=== PATIENT | female | born 2000 | race Caucasian/White ===

== ENCOUNTER 2018-05-16 09:08 | Inpatient (IN) | payer OTHER ==
[~2018-05-16] VITALS: Ht 162.6 cm; Wt 64.0 kg
[2018-05-16] MEDS ORDERED: VIT1LOZE2 PO (09:46)
[2018-05-16] MEDS ORDERED: IBUP-1484 PO (09:47)
[2018-05-16] MEDS ORDERED: ASCO1TAB2 PO (09:47)
[2018-05-16] MEDS ORDERED: SODIUM CHLORIDE 0.9% 1,000ML IVBOLUS ONE ×2 (10:00→13:00)
[2018-05-16] MEDS ORDERED: ACETAMINOPHEN 500 MG TABLET PO ONE (10:00)
[2018-05-16] MEDS ORDERED: MORPHINE SULFATE 4 MG/ML, 1ML IVPush PRN (10:00)
[2018-05-16] MEDS ORDERED: ACETAMINOPHEN 500 MG TABLET ONE (10:04)
[2018-05-16] MEDS ORDERED: MORPHINE SULFATE 4 MG/ML, 1ML ONE (10:04)
--- NOTE | 2018-05-16 10:07 | NUR ---
[facility] HAND-OFF REPORT GIVEN TO JACOBO GROSSMAN.
--- NOTE | 2018-05-16 10:08 | NUR ---
REPORT FROM JACOBO SUE. ASSUMED CARE OF PATIENT AT THIS TIME, LABS DRAWN, XRAY AT BEDSIDE. PATIENT SITTING ON FROY MARIANO. [id number].
--- NOTE | 2018-05-16 10:18 | NUR ---
PATIENT TO US AT THIS TIME VIA FROY MARIANO.
--- NOTE | 2018-05-16 10:18 | NUR ---
LAB UNABLE TO DRAW BOTH SETS OF BLOOD CULTURES, 2ND ATTEMPT WHEN PATIENT IS BACK FROM US.
[2018-05-16 10:40] LABS: MEAN CORPUSCULAR HEMOGLOBIN 27.4 pg (27.0-34.8); MEAN CORPUSCULAR HGB CONC 32.8 g/dL (32.4-35.8); MEAN CORPUSCULAR VOLUME 83.5 fL (80-100); MEAN PLATELET VOLUME 7.7 fL (7.4-10.4); PLATELET COUNT 354 x10^3/uL (130-400); RED BLOOD COUNT 4.89 x10^6/uL (3.82-5.3); RED CELL DISTRIBUTION WIDTH 15.1 % (9.6-15.2)
[2018-05-16 10:43] LABS: HCT (SEDRATE) 40.8 % (34.6-47.8)
[2018-05-16 10:49] LABS: INTERNATIONAL NORMALIZED RATIO 1.14 (0.93-1.1)
[2018-05-16 10:50] LABS: ALANINE AMINOTRANSFERASE 15 U/L (12-78); ALBUMIN 3.8 g/dL (3.4-5.0); ANION GAP 7 mmol/L (5-15); CALCIUM 9.2 mg/dL (8.5-10.1); CHLORIDE 108 mmol/L (98-107); CREATININE 0.81 mg/dL (0.55-1.02)
--- NOTE | 2018-05-16 10:50 | NUR ---
MOTHER ASSISTED PATIENT TO BATHROOM, UA COLLECTED AND SENT TO LAB. PATIENT BACK TO BED, NADN. LAB AT BEDSIDE TO REDRAW FOR BLOOD CULTURES.
[2018-05-16 10:54] LABS: RAPID INFLUENZA A Negative (Negative); RAPID INFLUENZA B Negative (Negative)
[2018-05-16 10:57] LABS: ALKALINE PHOSPHATASE 92 U/L (45-117); BASOPHILS # (AUTO) 0.02 x10^3/uL (0-0.3); BASOPHILS % (AUTO) 0 % (0-1); BILIRUBIN,TOTAL 0.4 mg/dL (0.2-1.0); CREATINE KINASE, TOTAL 111 U/L (26-192); EOSINOPHILS % (AUTO) 0 % (1-7); LYMPHOCYTES # (AUTO) 1.75 x10^3/uL (1-6.1); LYMPHOCYTES % (AUTO) 8 % (22-44); MD SCAN; MONOCYTES # (AUTO) 0.79 x10^3/uL (0-1.4); MONOCYTES % (AUTO) 4 % (2-9); NEUTROPHILS # (AUTO) 18.17 x10^3/uL (1.8-8.0); NEUTROPHILS % (AUTO) 88 % (42-75); TOTAL PROTEIN 8.9 g/dL (6.4-8.2)
[2018-05-16 11:14] LABS: CULTURE INDICATED? YES
--- NOTE | 2018-05-16 11:51 | NUR ---
NEW ORDERS, PATIENT BACK FROM CT. VS UPDATED IN CHART, PATIENT/FAMILY UPDATED ON POC. NADN.
[2018-05-16] MEDS ORDERED: OMNIPAQUE 350 MG/ML, 100ML BOTTLE ONE (11:53)
--- NOTE | 2018-05-16 12:30 | NUR ---
CT RESULTS BACK, CHART UP FOR RECHECK.
[2018-05-16 12:37] LABS: MICROSCOPIC INDICATED
[2018-05-16] MEDS ORDERED: CEFTRIAXONE PMX 1GM/50ML 50 ML ONE (12:46)
--- NOTE | 2018-05-16 12:52 | NUR ---
BLOOD CULTURES DRAWN X 2 PRIOR TO ABX ADMINISTRATIONS, PATIENT TBADM. ADMIT ORDER IN, AWAITING BED ASSIGNMENT. VS UPDATED IN CHART, PATIENT/FAMILY UPDATED ON POC. NADN.
[2018-05-16] MEDS ORDERED: [UNRECOGNIZED DRUG - OTHER] HOMEMEDPO PRN (13:00)
[2018-05-16] MEDS ORDERED: ZNOX HOMEMEDPO PRN (13:00)
[2018-05-16] MEDS ORDERED: LABETALOL 5MG/ML, 20ML IVPush PRN (13:00)
[2018-05-16] MEDS ORDERED: VIT C HOMEMEDPO PRN (13:00)
[2018-05-16] MEDS ORDERED: ONDANSETRON 2MG/ML, 2ML IVPush PRN (13:00)
[2018-05-16] MEDS ORDERED: PIPERACILLIN/TAZO/PMX 3.375GM 50 ML IV ONE (13:00)
[2018-05-16] MEDS ORDERED: VANCOMYCIN PER PHARMACY MC PRN ×2 (13:00)
[2018-05-16] MEDS ORDERED: CEFTRIAXONE PMX 1GM/50ML 50 ML IV ONE (13:00)
[2018-05-16] MEDS ORDERED: POLYETHYLENE GLYCOL 17 GM PACKET PO PRN (13:00)
[2018-05-16] MEDS ORDERED: PROPOLIS HOMEMEDPO PRN (13:00)
[2018-05-16] MEDS ORDERED: ONDANSETRON ODT 4 MG PO PRN (13:00)
[2018-05-16] MEDS ORDERED: PIPERACILLIN/TAZO/PMX 3.375GM 50 ML ONE (13:23)
[2018-05-16] MEDS: PIPERACILLIN/TAZO/PMX 3.375GM 50 ML IV SCH ×2 (13:38→21:29)
--- NOTE | 2018-05-16 13:48 | NUR ---
PATIENT AMB TO BATHROOM WITH MOTHER, PATIENT BACK TO BED, IVF AND FIRST IV ABX STOPPED, SECOND IV ABX AEDMINISTERED PER MD ORDER. VS UPDATED IN CHART, PATIENT TO BE MEDICAL HOLD DUE TO NO BEDS AVAILABLE.
[2018-05-16 14:12] LABS: AMPHETAMINE SCREEN, URINE Negative (Negative); BARBITURATE SCREEN, URINE Negative (Negative); BENZODIAZEPINE SCREEN, URINE Negative (Negative); CANNABINOID SCREEN, URINE Negative (Negative); COCAINE SCREEN, URINE Negative (Negative); METHADONE SCREEN, URINE Negative (Negative); OPIATE SCREEN, URINE Positive (Negative)
[2018-05-16] MEDS ORDERED: CLINDAMYCIN PMX 900MG/50ML 50 ML ONE (14:27)
[2018-05-16] MEDS: CLINDAMYCIN PMX 900MG/50ML 50 ML IV SCH ×2 (14:28→22:48)
--- NOTE | 2018-05-16 14:31 | NUR ---
PATIENT PLACED IN HOSPITAL BED, SITTING COMFORTABLY IN HOSPITAL BED, NADN, 2ND ABX STOPPED, 3RD ABX ADMINISTERED PER MD ORDER. FAMILY AT BEDSIDE, NO ADDITIONAL NEEDS AT THIS TIME.
--- NOTE | 2018-05-16 15:32 | NUR ---
ATTEMPTED TO CALL DR BAUMANN TO REQUEST DIET ORDER. NO ANSWER AT THIS TIME.
[2018-05-16] MEDS: D5%-0.45% NACL 1,000 ML IV SCH (15:34)
--- NOTE | 2018-05-16 15:35 | NUR ---
3RD ABX STOPPED, D5W 0.45% ADMINISTERED EPR MD ORDER. FAMILY AT BEDSIDE. CALL LIGHT WITHIN REACH. PATIENT RESTING QUIETLY IN HOSPITAL BED. NO ADDITIONAL NEEDS AT THIS TIME.
--- NOTE | 2018-05-16 15:40 | NUR ---
PER MACK MICHAELS FOR PATIENT TO HAVE DIET TRAY. DIET TRAY ORDERED.
--- NOTE | 2018-05-16 15:46 | NUR ---
PATIENT PROVIDED WATER PER REQUEST, PATIENT TO MRI VIA GURNEY AT THIS TIME, FROY. IVF STOPPED WHILE AT MRI PER FIGURINE MAKER REQUEST.
[2018-05-16] MEDS ORDERED: GADOBUTROL 7.5 MMOL/7.5 ML PFS ONE (16:28)
--- NOTE | 2018-05-16 16:54 | NUR ---
PATIENT BACK FROM MRI, DIET TRAY PROVIDED. IVF RE-STARTED. NADN, NO ADDITIONAL NEEDS AT THIS TIME.
[2018-05-16] MEDS ORDERED: VANCOMYCIN 1,200 MG in SODIUM CHLORIDE 0.9% 250 ML IV ONE ×2 (17:00→18:30)
--- NOTE | 2018-05-16 17:10 | NUR ---
PATIENT TRANSFERRED/ADMITTED TO HOSPITAL BED UPSTAIRS AT THIS TIME,
--- NOTE | 2018-05-16 17:10 | NUR ---
REPORT TO JACOBO BENSON.
[2018-05-16 17:46] VITALS: BP 99/63
[2018-05-16] MEDS ORDERED: ACETAMINOPHEN 325 MG TABLET ONE (18:21)
[2018-05-16] MEDS: ACETAMINOPHEN 325 MG TABLET PO PRN ×2 (18:23→22:49)
[2018-05-16] MEDS ORDERED: PHARMACOKINETIC CONSULTATION MC ONE (18:30)
[2018-05-16] MEDS ORDERED: PHARMACOKINETIC MONITORING MC PRN (18:30)
[2018-05-16] MEDS: VANCOMYCIN 1,200 MG in SODIUM CHLORIDE 0.9% 250 ML IV SCH (19:39)
[2018-05-16] MEDS ORDERED: IBUPROFEN 200 MG TABLET PO PRN (20:00)
[2018-05-16 20:57] VITALS: BP 89/54
[2018-05-17] MEDS ORDERED: MORPHINE SULFATE 4 MG/ML, 1ML IVPush PRN
[2018-05-17 01:35] VITALS: BP 93/58
[2018-05-17] MEDS: D5%-0.45% NACL 1,000 ML IV SCH ×2 (03:12→09:40)
[2018-05-17] MEDS: PIPERACILLIN/TAZO/PMX 3.375GM 50 ML IV SCH (03:19)
[2018-05-17 05:14] LABS: MEAN CORPUSCULAR HEMOGLOBIN 27.2 pg (27.0-34.8); MEAN CORPUSCULAR HGB CONC 32.2 g/dL (32.4-35.8); MEAN CORPUSCULAR VOLUME 84.3 fL (80-100); MEAN PLATELET VOLUME 7.5 fL (7.4-10.4); PLATELET COUNT 288 x10^3/uL (130-400); RED BLOOD COUNT 4.03 x10^6/uL (3.82-5.3); RED CELL DISTRIBUTION WIDTH 15.6 % (9.6-15.2)
[2018-05-17 05:25] LABS: ALBUMIN 2.4 g/dL (3.4-5.0); ANION GAP 9 mmol/L (5-15); CALCIUM 7.7 mg/dL (8.5-10.1); CHLORIDE 112 mmol/L (98-107)
[2018-05-17 05:39] LABS: ALANINE AMINOTRANSFERASE 11 U/L (12-78); ALKALINE PHOSPHATASE 75 U/L (45-117); BILIRUBIN,TOTAL 0.5 mg/dL (0.2-1.0); CREATININE 0.59 mg/dL (0.55-1.02); TOTAL PROTEIN 6.3 g/dL (6.4-8.2)
[2018-05-17 05:44] LABS: MD YES
[2018-05-17 05:46] LABS: BAND#(MANUAL) 1.33 x10^3/uL; BANDS%(MANUAL) 6 % (0-7); LYMPH#(MANUAL) 1.33 x10^3/uL (1-6.1); LYMPHS% (MANUAL) 6 % (22-44); MONOS#(MANUAL) 1.11 x10^3/uL (0.3-2.7); MONOS% (MANUAL) 5 % (2-9); SEG#(MANUAL) 18.43 x10^3/uL (1.8-8); SEGS% (MANUAL) 83 % (42-75)
[2018-05-17 05:47] LABS: ANISOCYTOSIS 1+
[2018-05-17 05:48] LABS: <PLATELET ESTIMATE> ADEQUATE; <PLT MORPHOLOGY> NORMAL PLT MORPH; OVALOCYTES 1+
[2018-05-17] MEDS: CLINDAMYCIN PMX 900MG/50ML 50 ML IV SCH ×3 (06:24→22:44)
[2018-05-17 07:34] VITALS: BP 93/60
[2018-05-17] MEDS: ASCORBIC ACID 500 MG TABLET PO SCH (09:00)
[2018-05-17] MEDS: SENNA/DOCUSATE TABLET PO SCH (09:00)
[2018-05-17] MEDS ORDERED: POTASSIUM CHLORIDE 20 MEQ TAB.ER.PRT PO ONE ×2 (11:00→15:00)
[2018-05-17] MEDS: VANCOMYCIN 1,200 MG in SODIUM CHLORIDE 0.9% 250 ML IV SCH (12:29)
[2018-05-17 14:17] VITALS: BP 99/56
[2018-05-17] MEDS: ACETAMINOPHEN 325 MG TABLET PO PRN ×2 (14:38→20:01)
[2018-05-17] MEDS: AMPICILLIN/SULBACTAM 3 GM in SODIUM CHLORIDE 0.9% 100 ML IV SCH ×2 (15:15→21:39)
[2018-05-17] MEDS ORDERED: NAPROXEN 250 MG TABLET PO SCH ×2 (15:30→20:00)
[2018-05-17 16:43] VITALS: BP 94/60
[2018-05-17] MEDS: SODIUM CHLORIDE 0.45% 1,000 ML IV SCH (16:54)
[2018-05-17 19:43] VITALS: BP 100/65
[2018-05-17] MEDS ORDERED: POTASSIUM CHLORIDE 20 MEQ TAB.ER.PRT ONE (21:57)
[2018-05-18] MEDS: VANCOMYCIN 1,300 MG in SODIUM CHLORIDE 0.9% 250 ML IV SCH ×2 (00:06→12:20)
[2018-05-18 01:40] VITALS: BP 96/63
[2018-05-18] MEDS: ACETAMINOPHEN 325 MG TABLET PO PRN ×3 (02:18→17:04)
[2018-05-18] MEDS: SODIUM CHLORIDE 0.45% 1,000 ML IV SCH (03:02)
[2018-05-18] MEDS: AMPICILLIN/SULBACTAM 3 GM in SODIUM CHLORIDE 0.9% 100 ML IV SCH ×4 (03:02→20:45)
[2018-05-18 04:35] LABS: MEAN CORPUSCULAR HGB CONC 33.1 g/dL (32.4-35.8); MEAN CORPUSCULAR VOLUME 84.7 fL (80-100); MEAN PLATELET VOLUME 7.4 fL (7.4-10.4); PLATELET COUNT 333 x10^3/uL (130-400); RED BLOOD COUNT 3.94 x10^6/uL (3.82-5.3); RED CELL DISTRIBUTION WIDTH 15.6 % (9.6-15.2)
[2018-05-18 04:46] LABS: CHLORIDE 112 mmol/L (98-107)
[2018-05-18 04:53] LABS: ALANINE AMINOTRANSFERASE 13 U/L (12-78); ALBUMIN 2.4 g/dL (3.4-5.0); ALKALINE PHOSPHATASE 76 U/L (45-117); ANION GAP 10 mmol/L (5-15); BILIRUBIN,TOTAL 0.4 mg/dL (0.2-1.0); CREATINE KINASE, TOTAL 81 U/L (26-192); CREATININE 0.61 mg/dL (0.55-1.02); TOTAL PROTEIN 6.8 g/dL (6.4-8.2)
[2018-05-18 05:00] LABS: BASOPHILS % (AUTO) 0 % (0-1); EOSINOPHILS # (AUTO) 0.01 x10^3/uL (0-0.8); EOSINOPHILS % (AUTO) 0 % (1-7); LYMPHOCYTES # (AUTO) 2.36 x10^3/uL (1-6.1); LYMPHOCYTES % (AUTO) 9 % (22-44); MD SCAN; MONOCYTES # (AUTO) 1.07 x10^3/uL (0-1.4); MONOCYTES % (AUTO) 4 % (2-9); NEUTROPHILS # (AUTO) 21.81 x10^3/uL (1.8-8.0); NEUTROPHILS % (AUTO) 86 % (42-75)
[2018-05-18 05:02] LABS: LYMPH#(MANUAL) 2.02 x10^3/uL (1-6.1); LYMPHS% (MANUAL) 8 % (22-44); MONOS#(MANUAL) 1.01 x10^3/uL (0.3-2.7); MONOS% (MANUAL) 4 % (2-9); SEG#(MANUAL) 22.26 x10^3/uL (1.8-8); SEGS% (MANUAL) 88 % (42-75)
[2018-05-18 05:03] LABS: <PLATELET ESTIMATE> ADEQUATE; <PLT MORPHOLOGY> NORMAL PLT MORPH; ANISOCYTOSIS 1+; OVALOCYTES 1+
[2018-05-18] MEDS: CLINDAMYCIN PMX 900MG/50ML 50 ML IV SCH ×3 (06:22→22:42)
[2018-05-18 08:07] VITALS: BP 93/60
[2018-05-18] MEDS: SENNA/DOCUSATE TABLET PO SCH (09:00)
[2018-05-18] MEDS: ASCORBIC ACID 500 MG TABLET PO SCH (09:38)
[2018-05-18] MEDS: LACTATED RINGERS 1,000 ML IV SCH ×2 (09:38→22:30)
[2018-05-18 15:24] VITALS: BP 107/70
[2018-05-18 19:43] VITALS: BP 94/61
[2018-05-19] MEDS: VANCOMYCIN 1,300 MG in SODIUM CHLORIDE 0.9% 250 ML IV SCH (00:30)
[2018-05-19] MEDS: AMPICILLIN/SULBACTAM 3 GM in SODIUM CHLORIDE 0.9% 100 ML IV SCH ×4 (03:11→21:08)
[2018-05-19 03:12] VITALS: BP 84/47
[2018-05-19] MEDS: ACETAMINOPHEN 325 MG TABLET PO PRN ×2 (03:17→15:20)
[2018-05-19 05:26] LABS: MEAN CORPUSCULAR HEMOGLOBIN 27.2 pg (27.0-34.8); MEAN CORPUSCULAR HGB CONC 32.5 g/dL (32.4-35.8); MEAN CORPUSCULAR VOLUME 83.7 fL (80-100); MEAN PLATELET VOLUME 7.1 fL (7.4-10.4); PLATELET COUNT 327 x10^3/uL (130-400); RED BLOOD COUNT 3.41 x10^6/uL (3.82-5.3); RED CELL DISTRIBUTION WIDTH 15.7 % (9.6-15.2)
[2018-05-19 05:34] LABS: ALBUMIN 2.1 g/dL (3.4-5.0); ANION GAP 8 mmol/L (5-15); CHLORIDE 113 mmol/L (98-107)
[2018-05-19 05:39] LABS: ALANINE AMINOTRANSFERASE 15 U/L (12-78); ALKALINE PHOSPHATASE 73 U/L (45-117); BILIRUBIN,TOTAL 0.6 mg/dL (0.2-1.0); CREATININE 0.51 mg/dL (0.55-1.02); TOTAL PROTEIN 6.2 g/dL (6.4-8.2)
[2018-05-19 06:11] LABS: BASOPHILS # (AUTO) 0.05 x10^3/uL (0-0.3); BASOPHILS % (AUTO) 0 % (0-1); EOSINOPHILS # (AUTO) 0.05 x10^3/uL (0-0.8); EOSINOPHILS % (AUTO) 0 % (1-7); LYMPHOCYTES # (AUTO) 2.46 x10^3/uL (1-6.1); LYMPHOCYTES % (AUTO) 14 % (22-44); MD SCAN; MONOCYTES # (AUTO) 1.15 x10^3/uL (0-1.4); MONOCYTES % (AUTO) 6 % (2-9); NEUTROPHILS # (AUTO) 14.45 x10^3/uL (1.8-8.0); NEUTROPHILS % (AUTO) 80 % (42-75)
[2018-05-19] MEDS: CLINDAMYCIN PMX 900MG/50ML 50 ML IV SCH ×3 (06:16→22:34)
[2018-05-19 07:21] VITALS: BP 98/61
[2018-05-19] MEDS: LACTATED RINGERS 1,000 ML IV SCH ×2 (07:30→22:34)
[2018-05-19] MEDS: SENNA/DOCUSATE TABLET PO SCH (09:00)
[2018-05-19] MEDS: ASCORBIC ACID 500 MG TABLET PO SCH (09:15)
[2018-05-19] MEDS: VANCOMYCIN PMX 1GM/200ML 200 ML IVPB SCH ×2 (09:16→17:00)
[2018-05-19 13:27] VITALS: BP 104/68
[2018-05-19 20:08] VITALS: BP 111/72
[2018-05-20] MEDS: VANCOMYCIN PMX 1GM/200ML 200 ML IVPB SCH ×2 (00:52→11:00)
[2018-05-20 00:55] VITALS: BP 98/59
[2018-05-20] MEDS: AMPICILLIN/SULBACTAM 3 GM in SODIUM CHLORIDE 0.9% 100 ML IV SCH ×4 (03:08→21:27)
[2018-05-20 05:42] LABS: ANION GAP 6 mmol/L (5-15); CHLORIDE 110 mmol/L (98-107)
[2018-05-20 05:46] LABS: ALANINE AMINOTRANSFERASE 21 U/L (12-78); ALKALINE PHOSPHATASE 72 U/L (45-117); BILIRUBIN,TOTAL 0.3 mg/dL (0.2-1.0); CREATININE 0.46 mg/dL (0.55-1.02); TOTAL PROTEIN 6.4 g/dL (6.4-8.2)
[2018-05-20 06:03] LABS: BASOPHILS # (AUTO) 0.03 x10^3/uL (0-0.3); BASOPHILS % (AUTO) 0 % (0-1); EOSINOPHILS # (AUTO) 0.34 x10^3/uL (0-0.8); EOSINOPHILS % (AUTO) 3 % (1-7); LYMPHOCYTES # (AUTO) 2.56 x10^3/uL (1-6.1); LYMPHOCYTES % (AUTO) 20 % (22-44); MD NO; MEAN CORPUSCULAR HEMOGLOBIN 28.3 pg (27.0-34.8); MEAN CORPUSCULAR HGB CONC 33.6 g/dL (32.4-35.8); MEAN CORPUSCULAR VOLUME 84.2 fL (80-100); MEAN PLATELET VOLUME 7.3 fL (7.4-10.4); MONOCYTES # (AUTO) 0.75 x10^3/uL (0-1.4); MONOCYTES % (AUTO) 6 % (2-9); NEUTROPHILS # (AUTO) 9.06 x10^3/uL (1.8-8.0); NEUTROPHILS % (AUTO) 71 % (42-75); PLATELET COUNT 351 x10^3/uL (130-400); RED BLOOD COUNT 3.35 x10^6/uL (3.82-5.3)
[2018-05-20] MEDS: CLINDAMYCIN PMX 900MG/50ML 50 ML IV SCH ×3 (06:31→23:26)
[2018-05-20] MEDS: SENNA/DOCUSATE TABLET PO SCH (07:22)
[2018-05-20] MEDS: LACTATED RINGERS 1,000 ML IV SCH ×2 (07:30→21:27)
[2018-05-20 08:02] VITALS: BP 105/65
[2018-05-20] MEDS: ASCORBIC ACID 500 MG TABLET PO SCH (08:11)
[2018-05-20] MEDS: ACETAMINOPHEN 325 MG TABLET PO PRN (10:22)
[2018-05-20] MEDS ORDERED: ACETAMINOPHEN 325 MG TABLET PO PRN (14:30)
[2018-05-20 14:33] VITALS: BP 102/67
[2018-05-20 20:00] VITALS: BP 109/72
[2018-05-21 02:00] VITALS: BP 94/55
[2018-05-21] MEDS: AMPICILLIN/SULBACTAM 3 GM in SODIUM CHLORIDE 0.9% 100 ML IV SCH ×4 (03:06→23:05)
[2018-05-21 05:09] LABS: BASOPHILS # (AUTO) 0.04 x10^3/uL (0-0.3); BASOPHILS % (AUTO) 0 % (0-1); EOSINOPHILS # (AUTO) 0.23 x10^3/uL (0-0.8); EOSINOPHILS % (AUTO) 2 % (1-7); LYMPHOCYTES % (AUTO) 30 % (22-44); MD NO; MEAN CORPUSCULAR HEMOGLOBIN 27.9 pg (27.0-34.8); MEAN CORPUSCULAR HGB CONC 33.3 g/dL (32.4-35.8); MEAN CORPUSCULAR VOLUME 83.8 fL (80-100); MEAN PLATELET VOLUME 7.2 fL (7.4-10.4); MONOCYTES # (AUTO) 0.59 x10^3/uL (0-1.4); MONOCYTES % (AUTO) 6 % (2-9); NEUTROPHILS # (AUTO) 5.94 x10^3/uL (1.8-8.0); NEUTROPHILS % (AUTO) 61 % (42-75); PLATELET COUNT 384 x10^3/uL (130-400); RED BLOOD COUNT 3.35 x10^6/uL (3.82-5.3); RED CELL DISTRIBUTION WIDTH 15.9 % (9.6-15.2)
[2018-05-21 05:16] LABS: ALANINE AMINOTRANSFERASE 16 U/L (12-78); ALBUMIN 2.1 g/dL (3.4-5.0); ANION GAP 6 mmol/L (5-15); CALCIUM 8.5 mg/dL (8.5-10.1); CHLORIDE 110 mmol/L (98-107)
[2018-05-21 05:19] LABS: ALKALINE PHOSPHATASE 64 U/L (45-117); BILIRUBIN,TOTAL 0.2 mg/dL (0.2-1.0); CREATININE 0.47 mg/dL (0.55-1.02); TOTAL PROTEIN 6.2 g/dL (6.4-8.2)
[2018-05-21] MEDS: CLINDAMYCIN PMX 900MG/50ML 50 ML IV SCH (06:37)
[2018-05-21 07:38] VITALS: BP 117/74
[2018-05-21] MEDS: ASCORBIC ACID 500 MG TABLET PO SCH (08:14)
[2018-05-21] MEDS: SENNA/DOCUSATE TABLET PO SCH (08:15)
[2018-05-21 12:54] VITALS: BP 105/69
[2018-05-21] MEDS: SODIUM CHLORIDE 0.45% 1,000 ML IV SCH ×2 (14:29→23:05)
[2018-05-21 20:00] VITALS: BP 101/65
[2018-05-22 02:00] VITALS: BP 98/65
[2018-05-22] MEDS: AMPICILLIN/SULBACTAM 3 GM in SODIUM CHLORIDE 0.9% 100 ML IV SCH ×2 (05:03→10:17)
[2018-05-22 06:02] LABS: ALBUMIN 2.3 g/dL (3.4-5.0); ANION GAP 6 mmol/L (5-15); CALCIUM 8.3 mg/dL (8.5-10.1); CHLORIDE 108 mmol/L (98-107)
[2018-05-22 06:16] LABS: ALANINE AMINOTRANSFERASE 17 U/L (12-78); ALKALINE PHOSPHATASE 70 U/L (45-117); BILIRUBIN,TOTAL 0.3 mg/dL (0.2-1.0); CREATININE 0.49 mg/dL (0.55-1.02); TOTAL PROTEIN 6.8 g/dL (6.4-8.2)
[2018-05-22 06:43] LABS: BASOPHILS # (AUTO) 0.02 x10^3/uL (0-0.3); BASOPHILS % (AUTO) 0 % (0-1); EOSINOPHILS # (AUTO) 0.06 x10^3/uL (0-0.8); EOSINOPHILS % (AUTO) 1 % (1-7); LYMPHOCYTES # (AUTO) 2.53 x10^3/uL (1-6.1); LYMPHOCYTES % (AUTO) 29 % (22-44); MD NO; MEAN CORPUSCULAR HEMOGLOBIN 27.1 pg (27.0-34.8); MEAN CORPUSCULAR HGB CONC 32.1 g/dL (32.4-35.8); MEAN CORPUSCULAR VOLUME 84.3 fL (80-100); MEAN PLATELET VOLUME 7.3 fL (7.4-10.4); MONOCYTES # (AUTO) 0.56 x10^3/uL (0-1.4); MONOCYTES % (AUTO) 6 % (2-9); NEUTROPHILS # (AUTO) 5.66 x10^3/uL (1.8-8.0); NEUTROPHILS % (AUTO) 64 % (42-75); PLATELET COUNT 457 x10^3/uL (130-400); RED BLOOD COUNT 3.85 x10^6/uL (3.82-5.3); RED CELL DISTRIBUTION WIDTH 15.9 % (9.6-15.2)
[2018-05-22 06:46] LABS: HCT (SEDRATE) 32.5 % (34.6-47.8)
[2018-05-22 07:09] VITALS: BP 103/68
[2018-05-22] MEDS: SENNA/DOCUSATE TABLET PO SCH (09:00)
[2018-05-22] MEDS: ASCORBIC ACID 500 MG TABLET PO SCH (10:16)
[2018-05-22] MEDS: SODIUM CHLORIDE 0.45% 1,000 ML IV SCH (10:17)
[2018-05-22] MEDS ORDERED: SULF1TAB24 PO (12:06)
[2018-05-22 12:17] VITALS: BP 128/73
== END 2018-05-22 13:20 | disposition home or self-care (01) | DRG 872 ==
LOC: ED 11:13 → EDIP 12:43 → 3NE 17:20 → DCLOUNGE 05-22 13:10
PROVIDERS: ADMIT Hospitalist; ATTEND Hospitalist
DX: A41.9 Sepsis, unspecified organism (principal); L03.116 Cellulitis of left lower limb; E87.1 Hypo-osmolality and hyponatremia; N39.0 Urinary tract infection, site not specified; E87.2 Acidosis; M72.9 Fibroblastic disorder, unspecified; R65.20 Severe sepsis without septic shock; E87.6 Hypokalemia; E86.9 Volume depletion, unspecified; M60.9 Myositis, unspecified; Z82.49 Family history of ischemic heart disease and other diseases of the circulatory system; Z59.0 Homelessness; Z79.899 Other long term (current) drug therapy
CPT/HCPCS: 36415; 71045; 74177; 80053; 80202; 80307; 81001; 82550; 83605; 83735; 84100; 84145; 84439; 84443; 85025; 85610; 85651; 85730; 86140; 86480; 87040; 87086; 87400; 87806; 93005; 96365; 96375; A9585; G0378; J0295; J0696; J2543; J3370; Q9967; G0475; J7030; J7050; J7120

== ENCOUNTER 2018-12-19 01:31 | Emergency (ER) | payer OTHER ==
[~2018-12-19] VITALS: Ht 162.6 cm; Wt 62.6 kg
[2018-12-19 04:20] VITALS: BP 100/59
== END 2018-12-19 04:22 | disposition home or self-care (01) ==
LOC: ED 04:08
DX: R07.89 Other chest pain (principal)
CPT/HCPCS: 36415; 71046; 71275; 80053; 84484; 84703; 85025; 85379; 93005; 96372; 99284; J1885; Q9967

== ENCOUNTER 2019-03-22 21:33 | Emergency (ER) | payer OTHER ==
[~2019-03-22] VITALS: Ht 162.6 cm; Wt 63.0 kg
[~2019-03-22 21:33] MED LIST: ASCO1TAB2 PO; IBUP-1902 PO; SULF1TAB24 PO; VIT1LOZE2 PO
[2019-03-22 22:29] LABS: BASOPHILS # (AUTO) 0.06 x10^3/uL (0-0.3); BASOPHILS % (AUTO) 1 % (0-1); EOSINOPHILS # (AUTO) 0.08 x10^3/uL (0-0.8); EOSINOPHILS % (AUTO) 1 % (1-7); LYMPHOCYTES # (AUTO) 2.86 x10^3/uL (1-6.1); LYMPHOCYTES % (AUTO) 39 % (22-44); MD NO; MEAN CORPUSCULAR HEMOGLOBIN 25.3 pg (27.0-34.8); MEAN CORPUSCULAR HGB CONC 31.7 g/dL (32.4-35.8); MEAN CORPUSCULAR VOLUME 79.9 fL (80-100); MEAN PLATELET VOLUME 7.7 fL (7.4-10.4); MONOCYTES # (AUTO) 0.73 x10^3/uL (0-1.4); MONOCYTES % (AUTO) 10 % (2-9); NEUTROPHILS # (AUTO) 3.71 x10^3/uL (1.8-8.0); NEUTROPHILS % (AUTO) 50 % (42-75); PLATELET COUNT 356 x10^3/uL (130-400); RED CELL DISTRIBUTION WIDTH 18.3 % (9.6-15.2)
[2019-03-22 22:40] LABS: ALBUMIN 3.7 g/dL (3.4-5.0); ANION GAP 5 mmol/L (5-15); CALCIUM 8.8 mg/dL (8.5-10.1); CHLORIDE 110 mmol/L (98-107); CREATININE 0.57 mg/dL (0.55-1.02)
--- NOTE | 2019-03-22 23:02 | NUR ---
1ST CONTACT C PT. STATES VB STARTED TUE. ~5 WKS PG. 1ST OB APT IS THIS COMING TUESDAY. PT STATES SINCE TUE SHE HAS PASSED TISSUE, USING PADS 1 Q2HRS, AND INCREASED CRAMPING. TOOK TYL @ 1700 C MILD RELIEF. AWARE OF PENDING LABS. WILL CTM. CALL LIGHT INREACH.
--- NOTE | 2019-03-23 00:20 | NUR ---
PELVIC COMPLETED BY
[2019-03-23 01:02] VITALS: BP 112/65
== END 2019-03-23 01:04 | disposition home or self-care (01) ==
LOC: ED 23:35
DX: O03.9 Complete or unspecified spontaneous abortion without complication (principal)
CPT/HCPCS: 36415; 76801; 80048; 82040; 84702; 85025; 99284